=== PATIENT | female | born 1980 | race Caucasian/White ===

== ENCOUNTER 2017-03-12 23:36 | Emergency (ER) | payer OTHER ==
[~2017-03-12] VITALS: Ht 170.2 cm; Wt 91.8 kg
[~2017-03-12 23:36] MED LIST: FLEXERIL10 MG PO; INDOCIN25 MG PO; MOTRIN600 MG PO; MOTRIN800 MG PO; NOHOMEMEDS; NORCO 7.5/321 TABLET PO; VALIUM5 MG PO
[2017-03-13] MEDS ORDERED: ROBITUSSIN NIG118 ML PO (00:59)
[2017-03-13 01:30] VITALS: BP 120/83
== END 2017-03-13 01:31 | disposition home or self-care (01) ==
LOC: EME 23:36 → EXP 23:36
DX: J06.9 Acute upper respiratory infection, unspecified (principal); R05 Cough
CPT/HCPCS: 99281; 99283; J8540

== ENCOUNTER 2017-12-09 18:33 | Emergency (ER) | payer OTHER ==
[~2017-12-09] VITALS: Ht 170.2 cm; Wt 93.6 kg
[~2017-12-09 18:33] MED LIST changes: +ROBITUSSIN NIG118 ML PO
[2017-12-09 19:24] LABS: HEMATOCRIT 39.6 % (36.0-46.0); HEMOGLOBIN 13.5 G/DL (11.9-15.5); MCH 29.5 PG (29.0-34.0); MCHC 34.1 G/DL (30.0-36.0); MCV 86.7 FL (83-99); PLATELET COUNT 234 K/uL (156-360); RBC DIS.WIDTH-CV 12.2 % (11.8-14.6); RBC DIS.WIDTH-SD 38.7 % (39-53); RED BLOOD COUNT 4.57 M/uL (3.80-5.20); WHITE BLOOD COUNT 7.1 K/uL (4.1-10.2)
[2017-12-09 19:50] LABS: CHLORIDE 107 mEq/L (99-109); POTASSIUM 3.8 mEq/L (3.7-5.4); SODIUM 139 mEq/L (136-147)
[2017-12-09 19:52] LABS: GLUCOSE 85 mg/dL (70-99)
[2017-12-09 19:55] LABS: CREATININE 0.6 mg/dL (0.6-1.3); GFR ESTIMATE (CALCULATED) > 59 mL/min/
[2017-12-09 19:56] LABS: UREA NITROGEN (BUN) 13 mg/dL (9-23)
[2017-12-09 19:57] LABS: TROP-I INTERPRETATION NEGATIVE; TROPONIN-I < 0.01 ng/mL (0.0-0.30)
[2017-12-09] MEDS ORDERED: NAPROXEN500 MG PO (22:15)
[2017-12-09 23:01] VITALS: BP 115/75
== END 2017-12-09 23:02 | disposition home or self-care (01) ==
LOC: EME 18:33
DX: M94.0 Chondrocostal junction syndrome [Tietze] (principal); J06.9 Acute upper respiratory infection, unspecified; N83.202 Unspecified ovarian cyst, left side; N83.201 Unspecified ovarian cyst, right side; J45.909 Unspecified asthma, uncomplicated; Z88.2 Allergy status to sulfonamides; Z88.1 Allergy status to other antibiotic agents; Z87.891 Personal history of nicotine dependence
CPT/HCPCS: 71046; 76856; 80048; 84484; 85027; 93005; 99281; 99284; J8540

== ENCOUNTER 2018-01-01 05:37 | Day surgery (SDC) | payer OTHER ==
[~2018-01-01] VITALS: Ht 170.2 cm; Wt 93.0 kg
[~2018-01-01 05:37] MED LIST changes: +MIRENA1 EACH IY; +MUCINEX D ER T1 EACH PO; +NAPROXEN500 MG PO; +PROVENTIL,2.5 MG/3 M IH; +TYLENOL EXTRA500 MG PO; +ULTRAM50 MG PO; +[UNRECOGNIZED DRUG - SUPPLY] PO
[2018-01-01] MEDS ORDERED: AIRBORNE EFFER1 EACH PO (06:07)
[2018-01-01 06:08] VITALS: BP 128/75
[2018-01-01] MEDS ORDERED: ESTRADIOL2 MG PO (10:48)
[2018-01-01 12:15] VITALS: BP 114/64
[2018-01-01 13:16] VITALS: BP 106/59
== END 2018-01-01 13:40 | disposition home or self-care (01) ==
LOC: SDC 05:37
PROC: 0UT24ZZ Resection of Bilateral Ovaries, Percutaneous Endoscopic Approach (ICD-10-PCS; principal; 2018-01-01)
DX: D27.1 Benign neoplasm of left ovary (principal); N83.01 Follicular cyst of right ovary; K21.9 Gastro-esophageal reflux disease without esophagitis; J45.909 Unspecified asthma, uncomplicated; B00.9 Herpesviral infection, unspecified; Z88.2 Allergy status to sulfonamides; Z87.891 Personal history of nicotine dependence
CPT/HCPCS: 84702; 86850; 86900; 86901; 88305; J0330; J0690; J1170; J1885; J2250; J2405; J2710; J3010; Q0175; S0020